=== PATIENT | female | born 1990 | race Caucasian/White ===

== ENCOUNTER 2018-06-10 11:26 | Outpatient (REF) | payer BC, SELFPAY ==
--- NOTE | 2018-06-10 11:00 | PAPFT_PTH ---
PATIENT: Greta Garcia LOC: [facility] U#:[id number] AGE/SX: 27/F ROOM: RE06/10/[address]: NGUYỄN Castro : 1990 BED: DIS: 06/10/2018 SPEC #: [id number] RECD: 06/10/18 12:55 STATUS: WANDA REOscar #: [id number] LETITIA: 06/10/18 11:[address]: Janell Rosales DEPT: [facility] Cytology RECD BY: Magali Crowder Tissues: 1 - CX/ENDOCX FOR PAP SMEARS Procedures: PAP THIN PREP/[facility] Screening Comments: [id number]
== END 2018-06-10 11:27 ==
LOC: LBN 11:26
PROVIDERS: PCP Nurse Practitioner Family; Visit Provider Nurse Practitioner Family
DX: Z12.4 Encounter for screening for malignant neoplasm of cervix (principal)
CPT/HCPCS: 88142

== ENCOUNTER 2021-05-03 11:34 | Outpatient (REF) | payer OTHER, SELFPAY ==
--- NOTE | 2021-05-03 11:15 | PAPFT_PTH ---
PATIENT: Greta Garcia LOC: [facility] U#:[id number] AGE/SX: 30/F ROOM: RE05/03/[address]: Bebe Monge NP : 1990 BED: DIS: 05/03/2021 SPEC #: [id number] RECD: 05/03/21 12:51 STATUS: WANDA BAEZA #: [id number] LETITIA: 05/03/21 11:[address]: Bebe Monge NP DEPT: [facility] Cytology RECD BY: Magali Crowder ENTERED: 05/03/21 12:51 SP TYPE: PAPFT OTHR DR: Janell Rosales, [facility] Tissues: 1 - CX/ENDOCX FOR PAP SMEARS Procedures: PAP THIN PREP/[facility] Screening HPV DNA PROBE Comments: [id number] (CHLAMYDIA/GC)
[2021-05-04 13:29] LABS: Chlamydia Result Negative (Negative); GC Result Negative (Negative)
== END 2021-05-03 11:35 | disposition home or self-care (01) ==
LOC: LBN 11:34
PROVIDERS: PCP Nurse Practitioner Family; Visit Provider Nurse Practitioner Women's Health
DX: Z11.3 Encounter for screening for infections with a predominantly sexual mode of transmission (principal); Z12.4 Encounter for screening for malignant neoplasm of cervix; R87.610 Atypical squamous cells of undetermined significance on cytologic smear of cervix (ASC-US); Z11.51 Encounter for screening for human papillomavirus (HPV); R87.810 Cervical high risk human papillomavirus (HPV) DNA test positive; Z01.419 Encounter for gynecological examination (general) (routine) without abnormal findings
CPT/HCPCS: 87491; 87591; 88142; 87624